=== PATIENT | male | born 1980 | race Hispanic/Latino ===

== ENCOUNTER 2022-06-14 10:48 | Emergency (ER) | payer BC ==
[~2022-06-14] VITALS: Ht 165.1 cm; Wt 124.7 kg
[2022-06-14] MEDS ORDERED: HYDROCODONE/APAP 5MG-325MG TAB PO ONE (11:45)
[2022-06-14] MEDS ORDERED: ANAPROX DS550 MG PO (12:33)
[2022-06-14] MEDS ORDERED: MEDROL4 M2 PO (12:33)
== END 2022-06-14 13:09 | disposition home or self-care (01) ==
LOC: ER 11:14
DX: M79.671 Pain in right foot (principal)
CPT/HCPCS: 99283